=== PATIENT | female | born 1945 | race Caucasian/White ===

== ENCOUNTER 2023-07-18 06:51 | Day surgery (SDC) | payer MEDICARE, BC ==
[~2023-07-18 06:51] MED LIST: Lactated Ringers 1,000 ML IV PRN
[2023-07-18] MEDS ORDERED: Midazolam 1 MG/ML 2 ML SDV IV ONE (06:52)
[2023-07-18] MEDS ORDERED: Sodium Chloride 0.9% 10 ML Syringe IV ONE (06:52)
[2023-07-18] MEDS ORDERED: fentaNYL 100 MCG/2 ML SDV IV ONE (06:52)
[2023-07-18] MEDS: Sodium Chloride 0.9% 10 ML Syringe FLUSH PRN (07:50)
[2023-07-18] MEDS: acetaZOLAMIDE 500 MG Cap.ER PO ONE (09:09)
== END 2023-07-18 09:30 | disposition home or self-care (01) ==
LOC: FB.SDS 06:51
PROVIDERS: ATTEND Ophthalmology
DX: H26.9 Unspecified cataract (principal); I10 Essential (primary) hypertension; E78.5 Hyperlipidemia, unspecified; F43.21 Adjustment disorder with depressed mood; F41.1 Generalized anxiety disorder; H61.23 Impacted cerumen, bilateral; H90.3 Sensorineural hearing loss, bilateral; G89.29 Other chronic pain; I73.00 Raynaud's syndrome without gangrene; Z87.891 Personal history of nicotine dependence; Z79.82 Long term (current) use of aspirin; Z79.899 Other long term (current) drug therapy
CPT/HCPCS: A9270-GY; J2250; J3010; J3490; V2632

== ENCOUNTER 2023-09-20 13:19 | Emergency (ER) | payer MEDICARE, BC ==
[2023-09-20] MEDS: traMADol 50 MG Tab PO ONE (13:50)
== END 2023-09-20 14:20 | disposition home or self-care (01) ==
LOC: FB.ED 13:19
DX: H66.91 Otitis media, unspecified, right ear (principal); I10 Essential (primary) hypertension; E78.00 Pure hypercholesterolemia, unspecified; Z90.710 Acquired absence of both cervix and uterus; Z79.899 Other long term (current) drug therapy; Z79.82 Long term (current) use of aspirin
CPT/HCPCS: 99282; A9270; 99283

== ENCOUNTER 2025-01-10 10:25 | Inpatient (IN) | payer MEDICARE, BC ==
[2025-01-10] MEDS ORDERED: Sodium Chloride 0.9% 10 ML Syringe FLUSH PRN (11:04)
[2025-01-10 11:33] LABS: BASOPHILS ABSOLUTE AUTO 0.0 x10-3/uL (0.0-0.1); BASOPHILS PERCENT AUTO 0.5 % (0.2-1.5); EOSINOPHILS ABSOLUTE AUTO 0.0 x10-3/uL (0.0-0.8); EOSINOPHILS PERCENT AUTO 1.0 % (0.6-8.1); LYMPHOCYTES ABSOLUTE AUTO 0.6 x10-3/uL (1.0-4.4); LYMPHOCYTES PERCENT AUTO 11.9 % (18.4-52.1); MEAN PLATELET VOLUME 6.9 fL (7.1-12.4); MONOCYTES ABSOLUTE AUTO 0.4 x10-3/uL (0.3-1.0); MONOCYTES PERCENT AUTO 8.9 % (4.4-15.7); NEUTROPHILS ABSOLUTE AUTO 3.8 x10-3/uL (1.5-6.3); NEUTROPHILS PERCENT AUTO 77.7 % (30.8-76.2); PLATELET COUNT,PLT 217 x10(3)uL (151-488); RED BLOOD CELL COUNT 3.55 x10(6)uL (3.60-5.20); RED CELL DISTRIBUTION WIDTH 14.5 % (12.3-16.5); WHITE BLOOD CELL COUNT,WBC 4.9 x10-3/uL (3.0-10.3)
[2025-01-10 11:39] LABS: BLOOD UREA NITROGEN,BUN 33 mg/dL (7-18); CARBON DIOXIDE,CO2 27 mmol/L (21-32); CHLORIDE,CL 106 mmol/L (100-110); CREATININE 1.2 mg/dL (0.55-1.02); ESTIMATED GFR 46 mL/min (>60); GLUCOSE RANDOM 105 mg/dL (80-116); POTASSIUM,K 4.1 mmol/L (3.5-5.3); SODIUM,NA 142 mmol/L (135-145)
[2025-01-10 11:44] LABS: A/G RATIO 1.0; ALANINE AMINOTRANSFERASE,ALT 19 U/L (12-36); ASPARTATE AMNIOTRANSFERASE,AST 26 IU/L (5-25); BILIRUBIN TOTAL 0.5 mg/dL (0.1-1.3); PROTEIN TOTAL,TP 7.4 g/dL (6.0-8.0)
[2025-01-10 11:48] LABS: LACTIC ACID 1.0 mmol/L (0.4-2.0)
[2025-01-10 12:02] LABS: PRO B-TYPE NATRIUR PEPT,BNPPRO 1622.0 pg/mL (<=450)
[2025-01-10 12:46] LABS: APPEARANCE,URINE TURBID (CLEAR); GLUCOSE,URINE NORMAL (NORMAL); OCCULT BLOOD,URINE LARGE (NEGATIVE)
[2025-01-10 12:47] LABS: SQUAMOUS EPITHELIAL CELLS,UR FEW (NS,R,O)
[2025-01-10] MEDS: Iopamidol 755 Mg/ML 100 ML Bottle IV SCH (14:19)
[2025-01-10] MEDS: Ketorolac 30 MG/ML SDV IVPUSH ONE (14:55)
[2025-01-10] MEDS: Ondansetron 4 MG/2 ML SDV IVPUSH ONE (14:55)
[2025-01-10] MEDS ORDERED: Ondansetron 4 MG Tab.DIS PO PRN (16:37)
[2025-01-11 06:55] LABS: BASOPHILS ABSOLUTE AUTO 0.0 x10-3/uL (0.0-0.1); BASOPHILS PERCENT AUTO 0.5 % (0.2-1.5); EOSINOPHILS ABSOLUTE AUTO 0.2 x10-3/uL (0.0-0.8); EOSINOPHILS PERCENT AUTO 5.5 % (0.6-8.1); LYMPHOCYTES ABSOLUTE AUTO 0.7 x10-3/uL (1.0-4.4); LYMPHOCYTES PERCENT AUTO 19.9 % (18.4-52.1); MEAN PLATELET VOLUME 7.0 fL (7.1-12.4); MONOCYTES ABSOLUTE AUTO 0.3 x10-3/uL (0.3-1.0); MONOCYTES PERCENT AUTO 9.5 % (4.4-15.7); NEUTROPHILS ABSOLUTE AUTO 2.4 x10-3/uL (1.5-6.3); NEUTROPHILS PERCENT AUTO 64.6 % (30.8-76.2); PLATELET COUNT,PLT 177 x10(3)uL (151-488); RED BLOOD CELL COUNT 3.26 x10(6)uL (3.60-5.20); RED CELL DISTRIBUTION WIDTH 14.6 % (12.3-16.5); WHITE BLOOD CELL COUNT,WBC 3.7 x10-3/uL (3.0-10.3)
[2025-01-11 07:00] LABS: BLOOD UREA NITROGEN,BUN 30 mg/dL (7-18); CARBON DIOXIDE,CO2 25 mmol/L (21-32); CHLORIDE,CL 107 mmol/L (100-110); CREATININE 1.0 mg/dL (0.55-1.02); EST CRCL DRUG DOSING (CG) 40.38 mL/min; ESTIMATED GFR 57 mL/min (>60); GLUCOSE RANDOM 90 mg/dL (80-116); POTASSIUM,K 4.0 mmol/L (3.5-5.3); SODIUM,NA 141 mmol/L (135-145)
[2025-01-12 06:48] LABS: MEAN PLATELET VOLUME 6.8 fL (7.1-12.4); PLATELET COUNT,PLT 179 x10(3)uL (151-488); RED BLOOD CELL COUNT 3.24 x10(6)uL (3.60-5.20); RED CELL DISTRIBUTION WIDTH 14.5 % (12.3-16.5); WHITE BLOOD CELL COUNT,WBC 3.4 x10-3/uL (3.0-10.3)
[2025-01-12 06:56] LABS: BLOOD UREA NITROGEN,BUN 23 mg/dL (7-18); CARBON DIOXIDE,CO2 27 mmol/L (21-32); CHLORIDE,CL 107 mmol/L (100-110); CREATININE 0.8 mg/dL (0.55-1.02); EST CRCL DRUG DOSING (CG) 50.47 mL/min; ESTIMATED GFR 74 mL/min (>60); GLUCOSE RANDOM 94 mg/dL (80-116); POTASSIUM,K 3.8 mmol/L (3.5-5.3); SODIUM,NA 142 mmol/L (135-145)
[2025-01-12 07:03] LABS: BAND PERCENT MAN 2 % (0-6); EOSINOPHILS PERCENT MAN 8 % (0-5); LYMPHOCYTES PERCENT MAN 20 % (13-37); MONOCYTES PERCENT MAN 10 % (4-12); SEG NEUTROPHILS PERCENT MAN 60 % (46-82)
[2025-01-13 06:54] LABS: BASOPHILS ABSOLUTE AUTO 0.0 x10-3/uL (0.0-0.1); BASOPHILS PERCENT AUTO 0.7 % (0.2-1.5); BLOOD UREA NITROGEN,BUN 30 mg/dL (7-18); CARBON DIOXIDE,CO2 26 mmol/L (21-32); CHLORIDE,CL 106 mmol/L (100-110); CREATININE 1.1 mg/dL (0.55-1.02); EOSINOPHILS ABSOLUTE AUTO 0.4 x10-3/uL (0.0-0.8); EOSINOPHILS PERCENT AUTO 12.4 % (0.6-8.1); EST CRCL DRUG DOSING (CG) 36.70 mL/min; ESTIMATED GFR 51 mL/min (>60); GLUCOSE RANDOM 94 mg/dL (80-116); LYMPHOCYTES ABSOLUTE AUTO 0.9 x10-3/uL (1.0-4.4); LYMPHOCYTES PERCENT AUTO 25.3 % (18.4-52.1); MEAN PLATELET VOLUME 6.9 fL (7.1-12.4); MONOCYTES ABSOLUTE AUTO 0.4 x10-3/uL (0.3-1.0); MONOCYTES PERCENT AUTO 10.9 % (4.4-15.7); NEUTROPHILS ABSOLUTE AUTO 1.8 x10-3/uL (1.5-6.3); NEUTROPHILS PERCENT AUTO 50.7 % (30.8-76.2); PLATELET COUNT,PLT 219 x10(3)uL (151-488); POTASSIUM,K 4.1 mmol/L (3.5-5.3); RED BLOOD CELL COUNT 3.50 x10(6)uL (3.60-5.20); RED CELL DISTRIBUTION WIDTH 14.5 % (12.3-16.5); SODIUM,NA 141 mmol/L (135-145); WHITE BLOOD CELL COUNT,WBC 3.6 x10-3/uL (3.0-10.3)
== END 2025-01-13 12:00 | DRG 689 ==
LOC: FB.ED 10:25 → FB.MS 15:34
PROVIDERS: ADMIT Family Medicine; ATTEND Family Medicine
DX: N30.00 Acute cystitis without hematuria (principal); N39.0 Urinary tract infection, site not specified; U07.1 COVID-19; F05 Delirium due to known physiological condition; F02.C4 Dementia in other diseases classified elsewhere, severe, with anxiety; F41.1 Generalized anxiety disorder; F03.94 Unspecified dementia, unspecified severity, with anxiety; F02.C3 Dementia in other diseases classified elsewhere, severe, with mood disturbance; D64.9 Anemia, unspecified; E86.0 Dehydration; R29.6 Repeated falls; E78.00 Pure hypercholesterolemia, unspecified; I10 Essential (primary) hypertension; G30.1 Alzheimer's disease with late onset; Z79.82 Long term (current) use of aspirin; Z79.1 Long term (current) use of non-steroidal anti-inflammatories (NSAID); Z79.891 Long term (current) use of opiate analgesic; Z79.899 Other long term (current) drug therapy; Z98.49 Cataract extraction status, unspecified eye; Z90.710 Acquired absence of both cervix and uterus
CPT/HCPCS: 36415; 71045 ×2; 71275 ×2; 80053; 81001; 82550; 83605; 83880; 84484; 85025; 85379; 87086; 96361; 96374; 96375; 99285; J0696; J2405; J7030 ×2; Q9967; 80048; 94150; 97165-GO; 99223; 99233; 99238; A9270-GY; J1885